=== PATIENT | male | born 1970 | race Two or more races ===

== ENCOUNTER 2018-06-16 07:23 | Emergency (ER) | payer MEDICAID ==
[~2018-06-16] VITALS: Ht 162.6 cm; Wt 88.0 kg
[2018-06-16] MEDS ORDERED: KETOROLAC 60MG/2ML VIAL IM ONE (09:00)
[2018-06-16 09:01] VITALS: BP 160/95
== END 2018-06-16 10:34 | disposition home or self-care (01) ==
LOC: ER 07:23
DX: M54.12 Radiculopathy, cervical region (principal); M79.642 Pain in left hand; Z98.890 Other specified postprocedural states
CPT/HCPCS: 72040; 73030; 73130; 96372; 99283; J1885

== ENCOUNTER 2018-10-23 10:11 | Emergency (ER) | payer OTHER, MEDICAID ==
[~2018-10-23] VITALS: Ht 162.6 cm; Wt 91.0 kg
[2018-10-23 10:25] VITALS: BP 126/88
== END 2018-10-23 11:10 | disposition left against medical advice (07) ==
LOC: ER 10:11
DX: L02.11 Cutaneous abscess of neck (principal); E11.9 Type 2 diabetes mellitus without complications; Z98.890 Other specified postprocedural states
CPT/HCPCS: 99281